=== PATIENT | male | born 1955 | race Caucasian/White ===

== ENCOUNTER → 2021-05-11 | Outpatient (CLI) | payer MEDICARE ==
[~2021-05-11] VITALS: Ht 175.3 cm; Wt 90.3 kg
[~2021-05-11] MED LIST: CATAPRES 0.1MG0.1 MG PO; GLUCOPHAGE1000 MG PO; LISINOPRIL5 MG PO; LOVASTATIN10 MG PO; NORVASC 5 MG TAB5 MG PO; REGLAN10 MG PO
== END ==
LOC: OPSV 13:59
DX: R35.0 Frequency of micturition (principal); R39.15 Urgency of urination; D70.0 Congenital agranulocytosis; Z16.12 Extended spectrum beta lactamase (ESBL) resistance
CPT/HCPCS: 96372; J1335

== ENCOUNTER → 2021-05-12 | Outpatient (CLI) | payer MEDICARE ==
[~2021-05-12] VITALS: Ht 175.3 cm; Wt 90.3 kg
== END ==
LOC: OPSV 14:11
DX: R35.0 Frequency of micturition (principal); R39.15 Urgency of urination; D70.0 Congenital agranulocytosis; Z16.12 Extended spectrum beta lactamase (ESBL) resistance
CPT/HCPCS: 96372; J1335

== ENCOUNTER → 2021-05-13 | Outpatient (CLI) | payer MEDICARE ==
[~2021-05-13] VITALS: Ht 175.3 cm; Wt 90.3 kg
== END ==
LOC: OPSV 06:49
DX: R35.0 Frequency of micturition (principal); R39.15 Urgency of urination; D70.0 Congenital agranulocytosis; Z16.12 Extended spectrum beta lactamase (ESBL) resistance
CPT/HCPCS: 96372; J1335

== ENCOUNTER → 2021-05-14 | Outpatient (CLI) | payer MEDICARE | LOC: OPSV 06:53 | DX: R35.0 Frequency of micturition (principal); R39.15 Urgency of urination; Z16.12 Extended spectrum beta lactamase (ESBL) resistance | CPT/HCPCS: 96372; J1335 ==